=== PATIENT | female | born 1940 | race Caucasian/White ===

== ENCOUNTER 2017-11-02 10:58 | Emergency (ER) | payer MEDICARE ==
[2017-11-02] MEDS ORDERED: NS 0.9% 1000 ML* 1,000 ML IV ONE ×2 (11:46→13:34)
[2017-11-02] MEDS ORDERED: Ketorolac INJ* 30 MG/ML 1 ML VIAL IV PUSH ONE (11:47)
[2017-11-02] MEDS ORDERED: Albuterol/Ipratropium NEB.SOL* Albuterol 2.5 MG/Ipratropium 0.5 MG 3 ML INH ONE ×2 (11:47→12:40)
--- NOTE | 2017-11-02 11:55 | RAD ---
INDICATION: Cough. COMPARISON: Comparison is made with a prior chest x-ray study from [facility] 2013. TECHNIQUE: A portable view of the chest was obtained. FINDINGS: Cardiac and mediastinal contours appear to be within normal limits. The lungs are clear. No pleural effusion is seen. IMPRESSION: NO EVIDENCE FOR ACUTE DISEASE.
[2017-11-02] MEDS ORDERED: Ketorolac INJ* 15 MG/ML 1 ML VIAL ONE (12:01)
[2017-11-02 13:02] LABS: ABS Basophils 0 10^3/ul (0-0.2); ABS Eosinophils 0 10^3/ul (0-0.6); ABS Lymphocytes 1.2 10^3/ul (1.0-4.8); ABS Monocytes 0.4 10^3/ul (0-0.8); ABS Neutrophils 2.1 10^3/ul (1.5-7.7); ABS Nucleated RBC 0 10^3/ul; Eosinophil % 0.9 % (0-6); Hematocrit 40 % (35-47); Hemoglobin 13.5 g/dl (12.0-16.0); Lymphocyte % 31.2 % (25-47); Mean Corpuscular HGB Conc 34 g/dl (31-36); Mean Corpuscular Hemoglobin 31 pg (27-31); Mean Corpuscular Volume 90 fL (80-97); Mean Platelet Volume 8 um3 (7.4-10.4); Nucleated Red Blood Cells % 0.3; Platelet Count 190 10^3/ul (150-450); Red Blood Count 4.42 10^6/ul (4.0-5.4); Red Cell Distribution Width 13 % (10.5-15); White Blood Count 3.7 10^3/ul (3.5-10.8)
[2017-11-02 13:15] LABS: EGFR Non-African American 52.1 (>60)
[2017-11-02] MEDS ORDERED: Azithromycin TAB* 250 MG PO ONE (15:16)
[2017-11-02 15:50] VITALS: BP 130/70
--- NOTE | 2017-11-02 16:51 | ED ---
Loren Julian Abhishek, scribed for Radha Colbert MD on 11/02/17 at 1149 . Influenza-Like Illness - HPI Summary HPI Summary: This patient is a 77 year old F with a chief complaint of febrile illness since 18 days ago. Pt states she felt that it was a cold since before and onset of coughing was on day. The patient rates the pain 5/10 in severity. Symptoms aggravated by nothing. Symptoms alleviated by nothing. Patient reports coughing, decreased appetite, chills, nasal congestion, MARCELO, fever intermittent, 3 days ago nausea, and vomiting (1), weakness, and dizziness. Patient denies ear ache, double vision, blurry vision, chest pain, diarrhea, edema LE, anxiety, and depression. Pt also states she has tested positive for flu in the doctor's office. - History of Current Complaint Chief Complaint: EDFluSymptoms Time Seen by Provider: 11/02/17 11:04 Hx Obtained From: Patient Onset/Duration: Gradual Onset, Lasting Days - 18 days, Still Present Associated Signs & Symptoms: Fever, Cough, Nasal Congestion, Headache, Vomiting - Allergy/Home Medications Allergies/Adverse Reactions: Allergies Allergy/AdvReac Type Severity Reaction Status Date / Time Procaine [From Novocain] Allergy Severe Swelling Verified 10/16/15 10:13 Of Face,Lips,& Throat Penicillins [PCN] Allergy Intermediate Rash Verified 10/16/15 10:13 [place] Inhibitors Allergy Unknown Unknown Verified 10/16/15 10:13 Reaction Details Iodixanol [From Visipaque] Allergy Unknown Shortness Verified 07/11/16 13:57 of Breath Home Medications: Home Medications Cyclobenzaprine TAB* [Flexeril 10 MG TAB*] 10 - 20 mg PO TID PRN 11/02/17 [ History Confirmed 11/02/17] Valsartan/HCTZ 320/12.5(NF) [Diovan Hct 320/12.5(NF)] 1 tab PO DAILY 11/02/17 [ History Confirmed 11/02/17] PMH/Surg Hx/FS Hx/Imm Hx Endocrine/Hematology History: Denies: Hx Diabetes Cardiovascular History: Reports: Hx Hypertension - ON MEDS Denies: Hx Pacemaker/ICD, Other Cardiovascular Problems/Disorders Respiratory History: Denies: Other Respiratory Problems/Disorders GI History: Reports: Hx Gastroesophageal Reflux Disease, Hx Irritable Bowel Denies: Other GI Disorders Musculoskeletal History: Reports: Hx Back Problems Denies: Other Musculoskeletal History Sensory History: Reports: Hx Contacts or Glasses - GLASSES, Hx Vision Problem Denies: Hx Hearing Aid Opthamlomology History: Reports: Hx Contacts or Glasses - GLASSES, Hx Vision Problem Neurological History: Reports: Hx Migraine - 1 SILENT MIGRAINE Denies: Other Neuro Impairments/Disorders Psychiatric History: Denies: Hx Panic Disorder - Cancer History Cancer Type, 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 [place]SI[place]OMY, 1945, [facility] [place]x Anesthesia Reactions: No Infectious Disease History: No Infectious Disease History: Denies: Traveled Outside the [place] in Last 30 Days - Family History Known Family History: Positive: Other - Liver Cancer, and rheumatoid arthritis - Social History Alcohol Use: Weekly Alcohol Amount: 1-2 PER WEEK Substance Use Type: Reports: None Smoking Status (MU): Never Smoked Tobacco Have You Smoked in the Last Year: No Review of Systems Positive: Fever - intermittent, Chills Eyes: Other - Negative double vision Negative: Blurred Vision ENT: Other - nasal congestion Negative: Ear Ache Negative: Chest Pain Positive: Cough Gastrointestinal: Other - decreased appetite Positive: Vomiting, Nausea. Negative: Diarrhea Positive: no symptoms reported Negative: Edema Positive: Headache, Weakness Negative: Anxious, Depressed All Other Systems Reviewed And Are Negative: No Physical Exam - Summary Physical Exam Summary: Appearance: Alert, conversive, nontoxic appearing Skin: Warm, dry, no mottling, no rashes, no contusions HEENT: EOMI, PERRL, moist mucous membranes Neck: No masses on the neck, supple Respiratory: Faint wheezing, Course cough Generalized weakness Cardiovascular: RRR, pulses are symmetrical in both lower and upper extremities Abdomen: Soft, non-tender Bowel Sounds: Present Musculoskeletal: No CVA tenderness, no obvious deformity, moving all extremities in a grossly normal manner Neurological: A&Ox3, CN II-XII Intact, moving all extremities symmetrically Psychiatric: Normal affect and mood Triage Information Reviewed: Yes Vital Signs On Initial Exam: Initial Vitals Temp Pulse Resp BP Pulse Ox 97.0 F 110 20 140/66 96 01/04/18 10:59 11/02/17 10:59 11/02/17 10:59 11/02/17 10:59 11/02/17 10:59 Vital Signs Reviewed: Yes Diagnostics - Vital Signs Vital Signs Temp Pulse Resp BP Pulse Ox 11/02/17 10:59 97.0 F 110 20 140/66 96 - Laboratory Lab Results: Lab Results 11/02/17 11/02/17 11/02/17 Range/Units 12:25 12:25 12:25 WBC 3.7 (3.5-10.8) 10^3/ul RBC 4.42 (4.0-5.4) 10^6/ul Hgb 13.5 (12.0-16.0) g/dl Hct 40 (35-47) % MCV 90 (80-97) fL MCH 31 (27-31) pg MCHC 34 (31-36) g/dl RDW 13 (10.5-15) % Plt Count 190 (150-450) 10^3/ul MPV 8 (7.4-10.4) um3 Neut % (Auto) 55.2 (38-83) % Lymph % (Auto) 31.2 (25-47) % [place] % (Auto) 12.0 H (1-9) % Eos % (Auto) 0.9 (0-6) % Baso % (Auto) 0.7 (0-2) % Absolute Neuts (auto) 2.1 (1.5-7.7) 10^3/ul Absolute Lymphs (auto) 1.2 (1.0-4.8) 10^3/ul Absolute Monos (auto) 0.4 (0-0.8) 10^3/ul Absolute Eos (auto) 0 (0-0.6) 10^3/ul Absolute Basos (auto) 0 (0-0.2) 10^3/ul Absolute Nucleated RBC 0 10^3/ul Nucleated RBC % 0.3 Sodium 132 L (133-145) mmol/L Potassium 3.6 (3.5-5.0) mmol/L Chloride 96 L (101-111) mmol/L Carbon Dioxide 27 (22-32) mmol/L Anion Gap 9 (2-11) mmol/L BUN 26 H (6-24) mg/dL Creatinine 1.03 H (0.51-0.95) mg/dL Est GFR ( Amer) 67.0 (>60) Est GFR (Non-Af Amer) 52.1 (>60) BUN/Creatinine Ratio 25.2 H (8-20) Glucose 94 (70-100) mg/dL Lactic Acid 1.0 (0.5-2.0) mmol/L Calcium 9.1 (8.6-10.3) mg/dL Total Bilirubin 0.60 (0.2-1.0) mg/dL AST 23 (13-39) U/L ALT 27 (7-52) U/L Alkaline Phosphatase 74 (34-104) U/L Total Protein 7.4 (6.4-8.9) g/dL Albumin 4.1 (3.2-5.2) g/dL Globulin 3.3 (2-4) g/dL Albumin/Globulin Ratio 1.2 (1-3) Influenza A (Rapid) (Negative) Influenza B (Rapid) (Negative) 11/02/17 Range/Units 12:37 WBC (3.5-10.8) 10^3/ul RBC (4.0-5.4) 10^6/ul Hgb (12.0-16.0) g/dl Hct (35-47) % MCV (80-97) fL MCH (27-31) pg MCHC (31-36) g/dl RDW (10.5-15) % Plt Count (150-450) 10^3/ul MPV (7.4-10.4) um3 Neut % (Auto) (38-83) % Lymph % (Auto) (25-47) % [place] % (Auto) (1-9) % Eos % (Auto) (0-6) % Baso % (Auto) (0-2) % Absolute Neuts (auto) (1.5-7.7) 10^3/ul Absolute Lymphs (auto) (1.0-4.8) 10^3/ul Absolute Monos (auto) (0-0.8) 10^3/ul Absolute Eos (auto) (0-0.6) 10^3/ul Absolute Basos (auto) (0-0.2) 10^3/ul Absolute Nucleated RBC 10^3/ul Nucleated RBC % Sodium (133-145) mmol/L Potassium (3.5-5.0) mmol/L Chloride (101-111) mmol/L Carbon Dioxide (22-32) mmol/L Anion Gap (2-11) mmol/L BUN (6-24) mg/dL Creatinine (0.51-0.95) mg/dL Est GFR ( Amer) (>60) Est GFR (Non-Af Amer) (>60) BUN/Creatinine Ratio (8-20) Glucose (70-100) mg/dL Lactic Acid (0.5-2.0) mmol/L Calcium (8.6-10.3) mg/dL Total Bilirubin (0.2-1.0) mg/dL AST (13-39) U/L ALT (7-52) U/L Alkaline Phosphatase (34-104) U/L Total Protein (6.4-8.9) g/dL Albumin (3.2-5.2) g/dL Globulin (2-4) g/dL Albumin/Globulin Ratio (1-3) Influenza A (Rapid) Negative (Negative) Influenza B (Rapid) Negative (Negative) Result Diagrams: 11/02/17 12:25 11/02/17 12:25 Lab Statement: Any lab studies that have been ordered have been reviewed, and results considered in the medical decision making process. - Radiology Chest X-ray Radiology Interpretation Completed By: ED Physician - Chest X-ray reveals no pneumonia as per ED physician. Re-Evaluation - Re-Evaluation 1225 Re-Evaluation Time: 12:25 Comment: Pt is comfortable, and no nebulizer was given as of yet. 1324 Re-Evaluation Time: 13:24 Comment: Pt states she is feeling better Flu Symptom Course/Dx - Course Course Of Treatment: Pt has been tested for the flu and reports she resulted postive in flu at her doctor's office. Results for flu swab test in the ED resulted in negative findings. Patient has been progressively feeling better with each reevaluation. Sinus congestion has been present for 2 weeks and the patient state she has SOB with penicillin. Patient will be given azithromycin and we will start her on antibiotics. The patient will be discharged home with a dx of sinusitis, dehydration and URI. - Diagnoses Provider Diagnoses: URI (upper respiratory infection), Sinusitis, Dehydration Discharge - Discharge Plan Condition: Stable Disposition: HOME Prescriptions: Azithromycin TAB* [Zithromax TAB (Z-LINSEY) 250 mg #6 tabs] 250 mg PO DAILY 4 Days #4 tab Patient Education Materials: Dehydration (ED), Sinusitis (ED), Upper Respiratory Infection (ED) Referrals: Jyoti Escalona, [employer] [Primary Care Provider] - Additional Instructions: drink plenty of fluids. tylenol and motrin for pain and fever. return if worse or any new symptoms. it is important to follow up with your primary care physician. take all medications as previously instructed. The documentation as recorded by the Loren berg Abhishek accurately reflects the service I personally performed and the decisions made by , Radha Colbert MD.
== END 2017-11-02 15:48 | disposition home or self-care (01) ==
LOC: ED 10:58
DX: J06.9 Acute upper respiratory infection, unspecified (principal); J01.90 Acute sinusitis, unspecified; E86.0 Dehydration; R11.2 Nausea with vomiting, unspecified; R51 Headache; R53.1 Weakness; R09.81 Nasal congestion; Z86.79 Personal history of other diseases of the circulatory system; Z87.19 Personal history of other diseases of the digestive system
CPT/HCPCS: 36415; 71045; 80053; 83605; 85025; 87040; 87502; 94640; 96361; 96374; 96375; 99283; A9270-GY; J1885

== ENCOUNTER 2018-06-21 09:46 | Day surgery (SDC) | payer MEDICARE ==
[~2018-06-21 09:46] MED LIST: Acetaminophen TAB* 325 MG PO PRN; Buffered Lidocaine 0.9% SYRIN* 5 ML/SYR SYRINGE INTRADERM ONE; Naloxone* 0.4 MG/ML 1 ML VIAL IV PRN; Ondansetron INJ* 2 MG/ML VIAL IV PRN; fentaNYL* 50 MCG/ML 2 ML VIAL (100 MCG VIAL) IV PRN; oxyCODONE/Acetamin 5/325 MG* TAB PO PRN
[2018-06-21] MEDS ORDERED: fentaNYL* 50 MCG/ML 2 ML VIAL (100 MCG VIAL) ONE (10:59)
[2018-06-21] MEDS ORDERED: Midazolam* 1 MG/ML 2 ML VIAL (2 MG) ONE (10:59)
[2018-06-21] MEDS ORDERED: Propofol* 10 MG/ML 20 ML BTL IV PUSH ONE (11:00)
[2018-06-21] MEDS ORDERED: Bupivacaine 0.5% PF 10 ML VIAL INJ ONE (11:46)
--- NOTE | 2018-06-21 12:51 | OP ---
Operative Report - Blank - Operative Report Date of Operation: 06/21/18 Note: DATE OF OPERATION: 06/21/18 - [facility] DATE OF : 1940 SURGEON: Henry Hendricks MD. 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 Bowden. ANESTHESIA: Local MAC PRE-OP DIAGNOSIS: 1. Right thumb trigger finger. 2. Right ulnar hand skin lesion greater than 1 cm. POST-OP DIAGNOSIS: 1. Right thumb trigger finger. 2. Right ulnar hand skin lesion greater than 1 cm. OPERATIVE PROCEDURE: 1. Right thumb trigger finger release with release of A1 bran. 2. Excision of right ulnar hand skin lesion greater than 1 cm. INDICATIONS: Keisha has a right thumb trigger finger that has recurred despite injections. We talked about treatment options and they wanted to proceed with surgical release. She also has a right ulnar hand skin lesion that she would like excised. It has the appearance of a pyogenic granuloma. ESTIMATED BLOOD LOSS: 2 mL. COMPLICATIONS: None. FINDINGS: As expected. DESCRIPTION OF PROCEDURE: Keisha was seen in the preoperative holding area. The correct side, site, and procedure were identified. We came back to the operating room. I infiltrated the operative area with 0.25% Marcaine. I worked from the thumb to hand lesion so as not to contaminate the area. I did not inject through the mass or anywhere near the mass but rather performed a field block in its periphery. The arm was prepped and draped in the usual fashion. Time-out was performed. The arm was exsanguinated with the Esmarch and the tourniquet was inflated to 250 mmHg. I made a 1 cm incision over in the MP joint flexion crease of the affected A1 bran. Full thickness flaps were bluntly raised off the tendon sheath. Ragnell retractors were placed. I then longitudinally incised the A1 bran on the radial third of the bran. The release was completed proximally and distally with the tenotomy scissors. The skin was then closed with 4-0 nylon. I then ellipsed out the skin lesion over the ulnar hand. It was near the junction between the glabrous and dorsal skin. The margin was taken off cleanly off the hypothenar fascial deeply without violating the fascia. The wound was closed with 4-0 nylon suture. The wounds were dressed, tourniquet deflated, and the patient was taken to the recovery room in stable condition.
[2018-06-21 13:20] VITALS: BP 137/58
== END 2018-06-21 13:26 | disposition home or self-care (01) ==
LOC: OREAST 09:46
PROVIDERS: ATTEND Orthopaedic Surgery Hand Surgery
DX: M65.311 Trigger thumb, right thumb (principal); D18.01 Hemangioma of skin and subcutaneous tissue; I10 Essential (primary) hypertension; E78.5 Hyperlipidemia, unspecified; Z86.73 Personal history of transient ischemic attack (TIA), and cerebral infarction without residual deficits
CPT/HCPCS: 88305; J2250; J2704; J3010

== ENCOUNTER 2023-04-18 10:00 | Inpatient (IN) ==
[~2023-04-18 10:00] MED LIST changes: -Acetaminophen TAB* 325 MG PO PRN; -Buffered Lidocaine 0.9% SYRIN* 5 ML/SYR SYRINGE INTRADERM ONE; +Buffered Lidocaine 1% SYRIN 1 ml INTRADERM ONE; +Famotidine IV 10 MG/ML 2 ml VIAL (20 mg) IV ONE; +Lactated Ringers 1000 ml BAG 1,000 ML IV SCH; -Naloxone* 0.4 MG/ML 1 ML VIAL IV PRN; -Ondansetron INJ* 2 MG/ML VIAL IV PRN; -fentaNYL* 50 MCG/ML 2 ML VIAL (100 MCG VIAL) IV PRN; -oxyCODONE/Acetamin 5/325 MG* TAB PO PRN
[2023-04-18] MEDS ORDERED: ceFAZolin 2 GM in NS PREMIX 2 GM/100 ML BAG IVPB ONE (10:40)
[2023-04-18] MEDS ORDERED: Famotidine IV 10 MG/ML 2 ml VIAL (20 mg) ONE (10:47)
[2023-04-18 10:54] LABS: Rapid COVID-19 Molecular Undetected (Undetected)
[2023-04-18] MEDS ORDERED: HYDROmorphone 1 MG/1 ML SYRINGE IV PRN (12:44)
[2023-04-18] MEDS ORDERED: fentaNYL 100 mcg/2 ml 50 MCG/ML VIAL IV PRN (12:44)
[2023-04-18] MEDS ORDERED: Naloxone 0.4 mg VIAL 0.4 mg/ml 1 ml VIAL IV PRN (12:44)
[2023-04-18] MEDS ORDERED: fentaNYL 100 mcg/2 ml 50 MCG/ML VIAL ONE (12:52)
[2023-04-18] MEDS ORDERED: ROPIVACAINE 5 MG/ML 30 ML BTL (0.5%) ONE (13:01)
[2023-04-18] MEDS ORDERED: Ondansetron 4 mg VIAL 2 MG/ML 2 ml VIAL ONE (14:21)
[2023-04-18] MEDS ORDERED: Dexamethasone IV 4 MG/ML VIAL 1 ml VIAL ONE (14:21)
[2023-04-18] MEDS ORDERED: Acetaminophen IV 1 GM/100ML 1,000 MG/100 ML BAG IV ONE (14:32)
[2023-04-18] MEDS ORDERED: Magnesium Hydroxide LIQ 30 ML UDC PO PRN (14:33)
[2023-04-18] MEDS ORDERED: Lactulose 30 ml UDC PO PRN (14:33)
[2023-04-18] MEDS ORDERED: Ondansetron ODT 4 mg TAB 4 MG TAB PO PRN (14:33)
[2023-04-18] MEDS ORDERED: Ondansetron 4 mg VIAL 2 MG/ML 2 ml VIAL IV PRN (14:33)
[2023-04-18] MEDS ORDERED: Morphine 2 MG/ML SYRINGE IV PRN (14:33)
[2023-04-18] MEDS ORDERED: Lidocaine 2% PF 5 ML VIAL ONE (16:23)
[2023-04-18] MEDS ORDERED: Phenylephrine 40 mcg/mL 10mL (400mcg) SYRINGE ONE (16:23)
[2023-04-18] MEDS ORDERED: Propofol 10 MG/ML 20 ML BTL ONE (16:23)
[2023-04-18] MEDS: Lactated Ringers 1000 ml BAG 1,000 ML IV SCH (17:35)
[2023-04-18] MEDS: Magnesium Hydroxide LIQ 30 ML UDC PO SCH (19:39)
[2023-04-18] MEDS: ceFAZolin 1 GM ADVAN 1 GM in NS 0.9% 50 ML 50 ML IVPB SCH (22:16)
[2023-04-19] MEDS: Lactated Ringers 1000 ml BAG 1,000 ML IV SCH (04:50)
[2023-04-19] MEDS: ceFAZolin 1 GM ADVAN 1 GM in NS 0.9% 50 ML 50 ML IVPB SCH ×2 (06:02→13:50)
[2023-04-19 06:45] LABS: Hematocrit 31.3 % (35-45); Hemoglobin 10.8 g/dL (11.5-14.3); Mean Platelet Volume 7.8 fL (7.5-11.2); Platelet Count 206 10^3/uL (150-450)
[2023-04-19 07:16] LABS: Calcium 8.8 mg/dL (8.6-10.3); Creatinine, Serum 0.96 mg/dL (0.51-0.95); Potassium 4.1 mmol/L (3.5-5.0); eGFR CKD-EPI 59.4 (>60)
[2023-04-19] MEDS ORDERED: Vitamin THERAPEUTIC TAB PO SCH (09:00)
[2023-04-19] MEDS: Magnesium Hydroxide LIQ 30 ML UDC PO SCH (09:04)
[2023-04-19 14:33] VITALS: BP 107/65
== END 2023-04-19 14:50 | disposition home or self-care (01) | DRG 470 ==
LOC: AA 10:00 → SSU 17:04
PROVIDERS: ADMIT Orthopaedic Surgery Adult Reconstructive Orthopaedic Surgery; ATTEND Orthopaedic Surgery Adult Reconstructive Orthopaedic Surgery